=== PATIENT | female | born 1975 | race Hispanic/Latino ===

== ENCOUNTER 2022-09-10 14:18 | Emergency (ER) | payer BC, OTHER ==
[~2022-09-10] VITALS: Ht 152.4 cm; Wt 81.6 kg
[~2022-09-10 14:18] MED LIST: LEVO100T12 PO
[2022-09-10 15:32] VITALS: O2SAT 98
[2022-09-10 15:33] VITALS: BP 134/75; PULSE 93; RESP 18
[2022-09-10] MEDS ORDERED: ONDANSETRON 4MG INJ IVP ONE (16:00)
[2022-09-10] MEDS ORDERED: MORPHINE 4 MG SYG IVP ONE (16:00)
[2022-09-10] MEDS ORDERED: 0.9%NACL 1000ML 1,000 ML IV ONE ×2 (16:00)
[2022-09-10 16:40] LABS: BASOPHILS # (AUTO) 0.04 K/uL (0.00-0.20); BASOPHILS % (AUTO) 0.3 % (0.0-5.0); EOSINOPHILS # (AUTO) 0.09 K/uL (0.00-0.70); EOSINOPHILS % (AUTO) 0.8 % (0.0-8.0); HEMATOCRIT 41.6 % (36-48); IMMATURE GRANULOCYTE ABSOLUTE 0.03 K/uL (0-1); LYMPHOCYTES # (AUTO) 1.8 K/uL (1.0-4.8); LYMPHOCYTES % (AUTO) 15.5 % (21.0-51.0); MEAN CORPUSCULAR HEMOGLOBIN 28.2 pg (27.0-33.0); MEAN CORPUSCULAR HGB CONC 32.2 g/dL (32.0-36.0); MEAN CORPUSCULAR VOLUME 87.6 fL (79-99); MONOCYTES # (AUTO) 1.1 K/uL (0.1-1.0); MONOCYTES % (AUTO) 9.6 % (3.0-13.0); NEUTROPHILS # (AUTO) 8.7 K/uL (1.8-7.7); NEUTROPHILS % (AUTO) 73.5 % (40.0-77.0); PLATELET COUNT (AUTO) 403 K/uL (130-400); RED BLOOD CELL COUNT(AUTO) 4.75 MIL/uL (4.00-5.50); WHITE BLOOD COUNT (AUTO) 11.8 K/uL (4.8-10.8)
[2022-09-10 16:55] LABS: ALBUMIN 4.3 g/dL (3.5-5.0); BILIRUBIN,TOTAL 0.7 mg/dL (0.2-1.0); CREATININE 0.9 mg/dL (0.5-1.5); POTASSIUM 3.9 mmol/L (3.5-5.1); TOTAL PROTEIN, SERUM 8.9 g/dL (6.0-8.3)
[2022-09-10 17:58] LABS: ADD UA MICROSCOPIC YES; APPEARANCE,URINE CLOUDY (CLEAR); BILIRUBIN,URINE 1 mg/dL (NEGATIVE); COLOR,URINE YELLOW (YELLOW); GLUCOSE, URINE (UA) NEGATIVE (NEGATIVE); KETONES,URINE 60 mg/dL (NEGATIVE); LEUKOCYTE ESTERASE ,URINE 75 Leu/uL (NEGATIVE); NITRATE,URINE NEGATIVE (NEGATIVE); PH,URINE 5.5 (5.0-8.0); PROTEIN,URINE 200 mg/dL (NEGATIVE)
[2022-09-10 17:59] LABS: BACTERIA,URINE MOD /HPF (None Seen); MUCUS,URINE MOD LPF (None Seen); SQUAMOUS EPITHELIAL CELL,UR MANY /HPF (0-2)
[2022-09-10] MEDS ORDERED: SULF1TAB42 PO (18:57)
[2022-09-10] MEDS ORDERED: ONDA4TAB10 PO (18:58)
[2022-09-10] MEDS ORDERED: CEFTRIAXONE 1G VIAL IVPB ONE (19:00)
[2022-09-10] MEDS ORDERED: LOPE2TAB26 PO (19:01)
[2022-09-10 19:17] LABS: SARS-CoV-2, RNA, NAAT NEGATIVE SARS CoV-2 (NEGATIVE)
== END 2022-09-10 19:59 | disposition home or self-care (01) ==
LOC: EDH 14:18
DX: N39.0 Urinary tract infection, site not specified (principal); K52.9 Noninfective gastroenteritis and colitis, unspecified; Z20.822 Contact with and (suspected) exposure to COVID-19
CPT/HCPCS: 99284; 74176; 96365; 96375; 87635; 80053; 83690; 85025; 87088; 81001; 81025; 36415; C9803; J7030; J0696; J2405; J2270